=== PATIENT | male | born 1965 | race Caucasian/White ===

== ENCOUNTER 2022-06-19 14:22 | Inpatient (IN) | payer MEDICARE, BC ==
[~2022-06-19] VITALS: Ht 177.8 cm; Wt 75.6 kg
[2022-06-19] MEDS ORDERED: CEFEPIME HCL 1 G in IV DEXTROSE 5% 50 ML IV ONE (15:00)
[2022-06-19] MEDS ORDERED: VANCOMYCIN IV 1,000 MG in IV DEXTROSE 5% 250 ML IV ONE (15:00)
[2022-06-19] MEDS ORDERED: IV NORMAL SALINE 1000 ML BAG IV ONE (15:00)
[2022-06-19] MEDS ORDERED: ACETAMINOPHEN ES 500 MG TABLET PO ONE (15:00)
[2022-06-19 15:10] LABS: HEMATOCRIT 28.6 % (36.7-47.1); MEAN CORPUSCULAR HEMOGLOBIN 22.8 uug (23.8-33.4); MEAN CORPUSCULAR VOLUME 75.7 fL (73.0-96.2); PLATELET COUNT (AUTO) 376 K/uL (152-348)
[2022-06-19] MEDS ORDERED: CEFEPIME HCL 1 G VIAL ONE (15:10)
[2022-06-19] MEDS ORDERED: VANCOMYCIN IV 200 ML ONE (15:10)
[2022-06-19] MEDS ORDERED: ACETAMINOPHEN ES 500 MG TABLET ONE (15:10)
[2022-06-19 15:35] LABS: BILIRUBIN,DIRECT 0.1 mg/dL (0.0-0.2); BILIRUBIN,TOTAL 0.3 mg/dL (0.2-1.0); CREATININE 1.6 mg/dL (0.6-1.3); POTASSIUM 4.2 mmol/L (3.5-5.1); TOTAL PROTEIN, SERUM 7.1 g/dL (6.4-8.2)
[2022-06-19] MEDS ORDERED: REMEDY ESSENTIAL ZINC PASTE 113 GM TP PRN (18:00)
[2022-06-19] MEDS ORDERED: ONDANSETRON 4 MG/2 ML VIAL IV PRN (18:00)
[2022-06-19] MEDS ORDERED: ACETAMINOPHEN 325 MG TABLET PO PRN (18:00)
[2022-06-19] MEDS ORDERED: ENOXAPARIN SODIUM 40 MG/0.4 ML DISP.SYRIN SQ SCH (18:00)
[2022-06-19] MEDS ORDERED: MAGNESIUM HYDROXIDE 30 ML LIQUID UDC PO PRN (18:00)
[2022-06-19] MEDS ORDERED: ENOXAPARIN SODIUM 40 MG/0.4 ML DISP.SYRIN SQ ONE (18:20)
[2022-06-19 18:34] LABS: *BILIRUBIN,URIN NEGATIVE (NEGATIVE); *BLOOD, URINE NEGATIVE (NEGATIVE); *CLARITY,URINE CLEAR (CLEAR); *COLOR,URINE YELLOW (YELLOW); *KETONES,URINE NEGATIVE (NEGATIVE); *UROBILINOGEN,URINE 0.2 E.U./dl (NORMAL); LEUKOCYTE ESTERASE ,URINE NEGATIVE (NEGATIVE); NITRITE, URINE NEGATIVE (NEGATIVE); PH,URINE 5.5 (5.0-8.0); UGLUCOSE NEGATIVE (NEGATIVE)
[2022-06-19] MEDS ORDERED: IV NS 1000 ML 1,000 ML IV PRN (20:15)
[2022-06-19 21:16] VITALS: BP 94/42
[2022-06-19] MEDS ORDERED: CEFEPIME HCL 2 G in IV DEXTROSE 5% 100 ML IV SCH (22:00)
[2022-06-20] VITALS: BP 98/49
[2022-06-20] MEDS ORDERED: CEFEPIME HCL 1 G VIAL ONE ×3 (00:47→01:50)
[2022-06-20] MEDS ORDERED: VANCOMYCIN IV 200 ML ONE (00:51)
[2022-06-20] MEDS ORDERED: CEFEPIME HCL 2 G in IV DEXTROSE 5% 100 ML IV SCH (03:00)
[2022-06-20 04:00] VITALS: BP 122/49
[2022-06-20] MEDS ORDERED: VANCOMYCIN IV 750 MG in IV DEXTROSE 5% 250 ML IV SCH (04:00)
[2022-06-20 06:28] LABS: MEAN CORPUSCULAR HEMOGLOBIN 23.5 uug (23.8-33.4); MEAN CORPUSCULAR VOLUME 76.3 fL (73.0-96.2); PLATELET COUNT (AUTO) 265 K/uL (152-348)
[2022-06-20 07:20] LABS: BILIRUBIN,TOTAL 0.3 mg/dL (0.2-1.0); CREATININE 0.9 mg/dL (0.6-1.3); MAGNESIUM 1.7 mg/dL (1.8-2.4); PHOSPHOROUS 3.2 mg/dL (2.5-4.9); POTASSIUM 3.9 mmol/L (3.5-5.1); TOTAL PROTEIN, SERUM 6.1 g/dL (6.4-8.2)
[2022-06-20] MEDS ORDERED: ENOXAPARIN SODIUM 40 MG/0.4 ML DISP.SYRIN SQ SCH (09:00)
[2022-06-20] MEDS ORDERED: MORPHINE SULFATE 2 MG/1 ML DISP.SYRIN IV PRN (09:00)
[2022-06-20] MEDS: MAGNESIUM SULFATE/D5W 100 ML IV SCH ×2 (10:02→10:28)
[2022-06-20 11:25] VITALS: BP 124/66
[2022-06-20] MEDS ORDERED: LEVO500T90 PO (16:49)
== END 2022-06-20 11:30 | disposition left against medical advice (07) | DRG 177 ==
LOC: ER 14:22 → TELE3 17:30
PROVIDERS: ADMIT Internal Medicine; ATTEND Internal Medicine
DX: J15.6 Pneumonia due to other Gram-negative bacteria (principal); J96.01 Acute respiratory failure with hypoxia; N17.0 Acute kidney failure with tubular necrosis; E46 Unspecified protein-calorie malnutrition; F10.239 Alcohol dependence with withdrawal, unspecified; D50.9 Iron deficiency anemia, unspecified; D63.8 Anemia in other chronic diseases classified elsewhere; Z20.822 Contact with and (suspected) exposure to COVID-19; Z68.23 Body mass index [BMI] 23.0-23.9, adult; Y90.9 Presence of alcohol in blood, level not specified
CPT/HCPCS: 36415; 71045; 83605; 83735; 84100; 85025; 87040; 93005; A4663; A9150; G0378; J0692; J1650; J2270; J3370; J3475; J7040; J7050

== ENCOUNTER 2022-06-20 15:57 | Emergency (ER) | payer MEDICARE, BC ==
[~2022-06-20] VITALS: Ht 177.8 cm; Wt 77.1 kg
[2022-06-20] MEDS ORDERED: LEVO500T90 PO (16:49)
--- NOTE | 2022-06-20 17:53 | NUR ---
Patient discharged to home in stable condition. Written and verbal after care instructions given. Patient verbalizes understanding of instructions. Stressed follow up or return to ER for worsening s/s.
== END 2022-06-20 17:53 | disposition home or self-care (01) ==
LOC: ER 15:57
DX: J18.9 Pneumonia, unspecified organism (principal); R03.0 Elevated blood-pressure reading, without diagnosis of hypertension
CPT/HCPCS: A4663